=== PATIENT | male | born 1965 | race Caucasian/White ===

== ENCOUNTER 2018-07-12 22:52 | Emergency (ER) | payer OTHER ==
[~2018-07-12] VITALS: Ht 175.3 cm; Wt 85.1 kg
[2018-07-12 23:23] VITALS: BP 0/0
== END 2018-07-13 01:59 | disposition expired ==
LOC: EDUNIT# 22:52 → EMS 22:54
DX: I46.9 Cardiac arrest, cause unspecified (principal)
CPT/HCPCS: 31500; 92950; 99291